=== PATIENT | female | born 1940 | race Caucasian/White ===

== ENCOUNTER 2023-01-19 07:13 | Day surgery (SDC) | payer MEDICARE ==
[~2023-01-19] VITALS: Ht 147.3 cm; Wt 53.5 kg
[~2023-01-19 07:13] MED LIST: ALEN35TA56 PO; ALLO100T PO; BSS IRR 500ML/OMIDRIA 4ML IRR BAG (OR ONLY) As Ordered ONE; CEFUROXIME 1MG/0.1ML INTRACAMERAL INJ As Ordered ONE; CYCLOPENTOLATE 1% OPHTH SOLN 2ML BTL OS SCH; LIDOCAINE 1% SDV 5ML VIAL As Ordered ONE; LOSA25TA13 PO; MIDAZOLAM INJ 2MG/2ML VIAL As Ordered ONE; OFLOXACIN 0.3 % (OCUFLOX) OPTH SOL 5ML OS SCH; PHENYLEPHRINE 2.5% OPHTH SOL 2ML OS SCH; PROPARACAINE 0.5% OPHTH SOL 15ML OS ONE; TROPICAMIDE 1% OPHTH SOLN 15ML OS SCH; fentaNYL 100 MCG/2 ML INJECTION As Ordered ONE
[2023-01-19 09:17] VITALS: BP 146/66; TEMP 98.9; O2SAT 95
== END 2023-01-19 09:35 | disposition home or self-care (01) ==
LOC: M SDC 07:13
PROVIDERS: ATTEND Ophthalmology
DX: H25.12 Age-related nuclear cataract, left eye (principal); I10 Essential (primary) hypertension; Z79.899 Other long term (current) drug therapy
CPT/HCPCS: 66984; J0697; J1097; J2250; J3010; V2632

== ENCOUNTER 2023-02-02 08:11 | Day surgery (SDC) | payer MEDICARE ==
[~2023-02-02] VITALS: Ht 149.9 cm; Wt 52.6 kg
[~2023-02-02 08:11] MED LIST changes: -BSS IRR 500ML/OMIDRIA 4ML IRR BAG (OR ONLY) As Ordered ONE; +CYCLOPENTOLATE 1% OPHTH SOLN 2ML BTL OD SCH; -CYCLOPENTOLATE 1% OPHTH SOLN 2ML BTL OS SCH; +OFLOXACIN 0.3 % (OCUFLOX) OPTH SOL 5ML OD SCH; -OFLOXACIN 0.3 % (OCUFLOX) OPTH SOL 5ML OS SCH; +PHENYLEPHRINE 2.5% OPHTH SOL 2ML OD SCH; -PHENYLEPHRINE 2.5% OPHTH SOL 2ML OS SCH; +PROPARACAINE 0.5% OPHTH SOL 15ML OD ONE; -PROPARACAINE 0.5% OPHTH SOL 15ML OS ONE; +TROPICAMIDE 1% OPHTH SOLN 15ML OD SCH; -TROPICAMIDE 1% OPHTH SOLN 15ML OS SCH
[2023-02-02] MEDS ORDERED: BSS IRR 500ML/OMIDRIA 4ML IRR BAG (OR ONLY) As Ordered ONE (09:50)
[2023-02-02] MEDS ORDERED: ESMOLOL INJ 100MG/10ML VIAL As Ordered ONE (09:56)
[2023-02-02 10:10] VITALS: BP 136/62; TEMP 97.7; O2SAT 98
== END 2023-02-02 10:30 | disposition home or self-care (01) ==
LOC: M SDC 08:11
PROVIDERS: ATTEND Ophthalmology
DX: H25.11 Age-related nuclear cataract, right eye (principal); I10 Essential (primary) hypertension; M10.9 Gout, unspecified; K21.9 Gastro-esophageal reflux disease without esophagitis; Z79.899 Other long term (current) drug therapy
CPT/HCPCS: 66984; J0697; J1097; J1805; J2250; J3010; V2632